=== PATIENT | male | born 1990 | race African-American/Black ===

== ENCOUNTER 2024-05-22 15:22 | Outpatient (REF) | payer OTHER, SELFPAY | END 2024-05-22 15:23 | disposition home or self-care (01) | LOC: HO.LAB 15:22 | PROVIDERS: PCP Physician Assistant; Visit Provider Urology | DX: N39.0 Urinary tract infection, site not specified (principal) | CPT/HCPCS: 81003; 87086 ==

== ENCOUNTER 2024-05-22 15:22 | Outpatient (AMB) | payer OTHER, SELFPAY ==
--- NOTE | 2024-05-22 15:32 | MHC.OFFVIS ---
Intake Visit Reasons: ER-Hematuria/Bladder Thickening/Poss Cystitis Intake Note: New patient is present for ER Follow up 04/16- Hematuria/HX Of Nephrolithiasis/ Bladder Thickening/Possible Cystitis Patient states he was told he had a UTI at ER and was put on medication Patient reports that his Urine has been very bloody since and medications has not helped at all Tipple Tender Required: No Accompanied by: Self / Same As Patient Allergies No Known Allergies Allergy (Verified 06/26/24 13:02) HPI Comments Details: Joseph is a pleasant male. He is a patient of . He is seen for the following urologic conditions - recurrent UTI Recurrent UTI with blood in the urine Reason presentation to [facility] emergency room UTI bladder wall thickening Had 14 days of Levaquin Recommend three-month follow-up [facility] Medical History (Updated 07/29/24 @ 16:49 by Dragan Agrawal MD) Microscopic hematuria Recurrent nephrolithiasis Review of Systems Const Denies chills and Denies fever(s) Card Reports no additional complaints and Denies syncope Resp Denies cough GI Denies abdominal pain and Denies heartburn Reports as per HPI and Denies change in libido Neuro Denies syncope Psych Denies change in libido Endo Denies change in libido Physical Exam Const General: cooperative, healthy appearing, comfortable and no acute distress Orientation/consciousness: patient oriented x3 HEENT Face and sinus: Yes normal facial exam Mouth: moist mucous membranes Neck Neck: Yes normal visual inspection, Yes full ROM and Yes trachea midline Chest Chest palpation & inspection: normal inspection of the chest Resp Effort & Inspection: normal respiratory effort, able to speak in complete sentences and no respiratory distress GI Inspection: Yes normal to inspection Back/Spine/Pelvis Cervical Spine: normal cervical lordosis Thoracic/Lumbar Spine: thoracic and lumbar spine normal to inspection Skin General skin exam: no rashes or lesions noted Neuro General: patient oriented x3, gait normal, tone normal and moves all extremities Extrem General: Yes normal to inspection and Yes capillary refill normal Results AMB Urinalysis, Automated UA Leukoctes 500 Annika/uL Last Edit by BEVERLY Rollins on 05/22/24 15:58 UA Nitrite Positive Last Edit by BEVERLY Rollins on 05/22/24 15:58 UA Urobilinogen 4 mg/dL Last Edit by BEVERLY Rollins on 05/22/24 15:58 UA Protein 300 mg/dL Last Edit by Tracie Mcgowan, RMA on 05/22/24 15:58 UA pH 7.5 Last Edit by Tracie Mcgowan, RMA on 05/22/24 15:58 UA Blood 200 [place]/uL Last Edit by Tracie Mcgowan, RMA on 05/22/24 15:58 UA Specific [place] 1.020 Last Edit by Tracie Mcgowan, RMA on 05/22/24 15:58 UA Ketone Positive Last Edit by Tracie Mcgowan, RMA on 05/22/24 15:58 UA Bilirubin 1 mg/dL Last Edit by Tracie Mcgowan, RMA on 05/22/24 15:58 UA Glucose 0 mg/dL Last Edit by Tracie Mcgowan, RMA on 05/22/24 15:58 Results Reviewed Results Reviewed: Laboratory Last Values Urine pH (Auto) 7.5 05/22/24 15:40 Specific [place] (Auto) 1.020 05/22/24 15:40 Urine Protein (Auto) 300 mg/dL 05/22/24 15:40 Glucose (UA)(Auto) 0 mg/dL 05/22/24 15:40 Urine Ketones (Auto) Positive 05/22/24 15:40 Urine Blood (Auto) 200 [place]/uL 05/22/24 15:40 Urine Nitrite (Auto) Positive 05/22/24 15:40 Urine Bilirubin (Auto) 1 mg/dL 05/22/24 15:40 Urine Urobilinogen (Auto) 4 mg/dL 05/22/24 15:40 Leukocyte Esterase (Auto) 500 Annika/uL 05/22/24 15:40 Assessment & Plan Assessment & Plan (1) Microscopic hematuria: Code(s): R31.29 - Other microscopic hematuria Category: Medical Plan one month f/u tele Orders: Orders Urine Culture 05/22/24 N39.0 - Urinary tract infection, site not specified AMB Urinalysis Automated 05/22/24 Z13.9 - Encounter for screening, unspecified Patient Instructions: Imaging studies, laboratory and physical exam results were discussed and reviewed in detail. No major barriers to patient understanding were identified. An opportunity to ask questions regarding the treatment plan was provided. All questions were answered. The patient expressed understanding and agreement with the above treatment plan. The patient is aware they should contact our office by phone for worsening of their current condition or the appearance of new urologic symptoms. Compliance is encouraged with any medications and followup testing that is ordered. It is a privilege to participate in the urologic care of your patient. If you have any questions or concerns regarding treatment for the above conditions, or other urologic issues, please do not hesitate to contact me. The office telephone contact is [phone]. This note is constructed using voice recognition software. While every effort has been made to ensure accuracy disc pad plate filler errors may have been included. Yours sincerely, Dr Dragan Agrawal MD, [facility] - Urology Providers of Expert, Compassionate Care for the Genitourinary System Coding Level of Care Code New Pt Level 3 (89045) Diagnoses Microscopic hematuria R31.29
== END 2024-05-22 16:12 | disposition home or self-care (01) ==
PROVIDERS: PCP Physician Assistant; Visit Provider Urology
DX: R31.29 Other microscopic hematuria (principal)
CPT/HCPCS: 99203

== ENCOUNTER 2024-06-26 12:58 | Outpatient (AMB) | payer OTHER, SELFPAY ==
--- NOTE | 2024-06-26 12:59 | MHC.OFFVIS ---
Intake Visit Reasons: 1M follow up Intake Note: Patient is present for Telephone Follow up Urology Med: None Antibiotic Allergy:None Blood Thinner:None Patient states that there is still some blood in his urine time to time Software Quality Assurance Analyst Required: No Accompanied by: Self / Same As Patient Allergies No Known Allergies Allergy (Verified 08/06/24 10:18) HPI Comments Details: Blanca is a pleasant male. He is a patient of . He is seen for the following urologic conditions - recurrent UTI Telemedicine Evaluation 15 min Consultation [employer] Improvement with Levaquin Six-month follow-up review renal imaging Recurrent UTI with blood in the urine Reason presentation to [facility] emergency room UTI bladder wall thickening Had 14 days of Levaquin [facility] Medical History (Updated 08/06/24 @ 10:49 by Dragan Agrawal MD) Microscopic hematuria Recurrent nephrolithiasis Review of Systems Const All systems reviewed & are unremarkable except as noted in HPI and below Reports no additional complaints Resp Reports no additional complaints GI Reports no additional complaints Reports as per HPI Musc Reports no additional complaints Physical Exam Telemedicine evaluation Appropriate responses Regular breathing rate and rhythm HEENT Head: Yes normal to inspection Ears: hearing grossly normal bilaterally Eyes General: appearance normal, both eyes and all related structures Neck Neck: Yes normal visual inspection Chest Chest palpation & inspection: normal inspection of the chest Resp Effort & Inspection: normal respiratory effort and able to speak in complete sentences Telehealth Telehealth Location of provider rendering services: practice address Location of patient: address on file Patient Identification confirmed using: Name, : Yes Telehealth method: voice only Patient verbally consented to treatment: Yes Patient verbally consented to billing insurance company: Yes Patient informed of any privacy concerns related to visit: Yes Assessment & Plan Assessment & Plan (1) Microscopic hematuria: Code(s): R31.29 - Other microscopic hematuria Category: Medical (2) Complicated urinary tract infection: Code(s): N39.0 - Urinary tract infection, site not specified Category: Medical Plan Six-month follow-up Patient Instructions: Imaging studies, laboratory and physical exam results were discussed and reviewed in detail. No major barriers to patient understanding were identified. An opportunity to ask questions regarding the treatment plan was provided. All questions were answered. The patient expressed understanding and agreement with the above treatment plan. The patient is aware they should contact our office by phone for worsening of their current condition or the appearance of new urologic symptoms. Compliance is encouraged with any medications and followup testing that is ordered. It is a privilege to participate in the urologic care of your patient. If you have any questions or concerns regarding treatment for the above conditions, or other urologic issues, please do not hesitate to contact me. The office telephone contact is [phone]. This note is constructed using voice recognition software. While every effort has been made to ensure accuracy systems specialist errors may have been included. Yours sincerely, Dr Dragan Agrawal MD, [facility] - Urology Providers of Expert, Compassionate Care for the Genitourinary System Coding Level of Care Code Tele Est Pt Level 3 (18267) Diagnoses Microscopic hematuria R31.29 Complicated urinary tract infection N39.0
== END 2024-06-26 13:33 | disposition home or self-care (01) ==
LOC: HO.HUSH 12:58
PROVIDERS: PCP Physician Assistant; Visit Provider Urology
DX: R31.29 Other microscopic hematuria (principal); N39.0 Urinary tract infection, site not specified
CPT/HCPCS: 99213

== ENCOUNTER → 2024-06-26 12:58 | Outpatient (BNVA) | payer OTHER, SELFPAY | PROVIDERS: PCP Physician Assistant; Visit Provider Urology ==

== ENCOUNTER 2024-08-06 10:05 | Outpatient (AMB) | payer OTHER, SELFPAY ==
--- NOTE | 2024-08-06 10:17 | A.OFFVIS_ITS ---
Intake Visit Reasons: 6M UTI/Hematuria Follow up Intake Note: Patient is present for 6M UTI/HEMATURIA F/U Urology Medication:NONE Antibiotic Allergy:NONE Blood Thinner:NONE Pump Servicer Required: No Allergies No Known Allergies Allergy (Verified 08/06/24 10:18) HPI Comments Details: Blanca is a pleasant male. He is a patient of . He is seen for the following urologic conditions - recurrent UTI - microscopic hematuria Persistent microscopic hematuria Recurrent UTI today Antibiotics provided Will need cystoscopy Urine culture has come back with group B strep. Antibiotics changed to Augmentin. Recurrent UTI with blood in the urine Reason presentation to [facility] emergency room UTI bladder wall thickening Initially given Bactrim - nitrite negative 04/20 CT scan performed negative Had 14 days of Levaquin [facility] Medical History (Updated 08/06/24 @ 10:49 by Dragan Agrawal MD) Microscopic hematuria Recurrent nephrolithiasis Results AMB Urinalysis, Automated UA Leukoctes 125 Annika/uL Last Edit by FLAVIO Parker on 08/06/24 10:33 UA Nitrite Positive Last Edit by FLAVIO Pakrer on 08/06/24 10:33 UA Urobilinogen 1 mg/dL Last Edit by FLAVIO Parker on 08/06/24 10:33 UA Protein 100 mg/dL Last Edit by FLAVIO Parker on 08/06/24 10:33 UA pH 6.0 Last Edit by FLAVIO Parker on 08/06/24 10:33 UA Blood 200 [place]/uL Last Edit by FLAVIO Parker on 08/06/24 10:33 UA Specific [place] 1.025 Last Edit by FLAVIO Parker on 08/06/24 10: 33 UA Ketone Negative Last Edit by FLAVIO Parker on 08/06/24 10:33 UA Bilirubin 0 mg/dL Last Edit by FLAVIO Parker on 08/06/24 10:33 UA Glucose 0 mg/dL Last Edit by FLAVIO Parker on 08/06/24 10:33 Results Reviewed Results Reviewed: Laboratory Last Values Urine pH (Auto) 6.0 08/06/24 10:32 Specific [place] (Auto) 1.025 08/06/24 10:32 Urine Protein (Auto) 100 mg/dL 08/06/24 10:32 Glucose (UA)(Auto) 0 mg/dL 08/06/24 10:32 Urine Ketones (Auto) Negative 08/06/24 10:32 Urine Blood (Auto) 200 [place]/uL 08/06/24 10:32 Urine Nitrite (Auto) Positive 08/06/24 10:32 Urine Bilirubin (Auto) 0 mg/dL 08/06/24 10:32 Urine Urobilinogen (Auto) 1 mg/dL 08/06/24 10:32 Leukocyte Esterase (Auto) 125 Annika/uL 08/06/24 10:32 Assessment & Plan Assessment & Plan (1) Complicated urinary tract infection: Code(s): N39.0 - Urinary tract infection, site not specified Category: Medical (2) Microscopic hematuria: Code(s): R31.29 - Other microscopic hematuria Category: Medical (3) Recurrent nephrolithiasis: Code(s): N20.0 - Calculus of kidney Category: Medical Plan Complete evaluation with imaging and cystoscopy Orders: Orders AMB Urinalysis Automated 08/06/24 Z13.9 - Encounter for screening, unspecified Urine Culture 08/06/24 N39.0 - Urinary tract infection, site not specified CT abdomen pelvis wo IV con 08/06/24 N39.0 - Urinary tract infection, site not specified Medications: New doxycycline hyclate 100 mg PO BID 14 days 28 tabs 0RF N39.0 - Urinary tract infection, site not specified, N45.1 - Epididymitis amoxicillin-pot clavulanate 500-125 mg (Augmentin) 1 tab PO Q8H 5 days 15 tabs 0RF N39.0 - Urinary tract infection, site not specified Patient Instructions: Imaging studies, laboratory and physical exam results were discussed and reviewed in detail. No major barriers to patient understanding were identified. An opportunity to ask questions regarding the treatment plan was provided. All questions were answered. The patient expressed understanding and agreement with the above treatment plan. The patient is aware they should contact our office by phone for worsening of their current condition or the appearance of new urologic symptoms. Compliance is encouraged with any medications and followup testing that is ordered. It is a privilege to participate in the urologic care of your patient. If you have any questions or concerns regarding treatment for the above conditions, or other urologic issues, please do not hesitate to contact me. The office telephone contact is [phone]. This note is constructed using voice recognition software. While every effort has been made to ensure accuracy preschool aide errors may have been included. Yours sincerely, Dr Dragan Agrawal MD, [facility] - Urology Providers of Expert, Compassionate Care for the Genitourinary System Coding Level of Care Code Est Pt Level 4 (43802) Diagnoses Complicated urinary tract infection N39.0 Microscopic hematuria R31.29 Recurrent nephrolithiasis N20.0
== END 2024-08-06 10:53 | disposition home or self-care (01) ==
PROVIDERS: PCP Physician Assistant; Visit Provider Urology
DX: N39.0 Urinary tract infection, site not specified (principal); R31.29 Other microscopic hematuria; N20.0 Calculus of kidney
CPT/HCPCS: 99214

== ENCOUNTER 2024-08-06 10:05 | Outpatient (REF) | payer OTHER, SELFPAY | END 2024-08-06 10:06 | disposition home or self-care (01) | LOC: HO.LAB 10:05 | PROVIDERS: PCP Physician Assistant; Visit Provider Urology | DX: N39.0 Urinary tract infection, site not specified (principal); B95.4 Other streptococcus as the cause of diseases classified elsewhere | CPT/HCPCS: 81003; 87086; 87147 ==

== ENCOUNTER 2024-09-18 17:05 | Outpatient (REF) | payer OTHER, SELFPAY ==
--- NOTE | ~2024-09-18 | CT_ITS ---
CLINICAL HISTORY: G89.3 - Neoplasm related pain (acute) (chronic) CT abdomen and pelvis without contrast Comparison: None Findings: No consolidation or effusion. 2 mm nonobstructive calculus within the upper pole of the right kidney. No ureteral calculus or hydronephrosis. Remaining abdominal organs are unremarkable. No calcified gallstones. No bowel obstruction, pneumoperitoneum, or pneumatosis. There is a 7 mm fat density nodular focus associated with the anterior wall of the urinary bladder. Remaining pelvic contents are unremarkable. Possible appendicoliths. No current evidence of appendicitis. No acute fracture. IMPRESSION: 1. Tiny nonobstructive calculus within the right kidney. 2. 7 mm focus of fat associated with the anterior bladder wall, likely a lipoma. This document has been electronically signed by: Leonora Booth MD on 09/18/2024 17:44:50
--- OUTSIDE RECORDS SUMMARY | 2024-09-18 18:29 | XMS_ITS | Clinical Summary ---
Author Organization [facility] Address [address] [place] [address] Care Team Providers Care Astronaut Mission Specialist Name Role Phone Miguel Angel Hassan Primary Care Provider [phone] Source Comments PLEASE NOTE, if this patient is a minor, it may be UNLAWFUL to discuss sensitive information that is contained in these records (such as FAMILY PLANNING, MENTAL HEALTH or SUBSTANCE ABUSE) with the minor patient's parent or other person without the patient's specific authorization.[facility] Allergies Active Allergy Reactions Criticality Noted Date Comments Levonorgestrel-Ethinyl Estrad 2019 Pollen Extracts 10/29/2019 Shellfish Derived 10/29/2019 Medications tamsulosin (FLOMAX) 0.4 mg 24 hr capsuleIndicati ons:History of kidney stones Take 1 Capsule by mouth once daily 30 Capsule 05/25/2021 Active Active Problems Problem Noted Date Diagnosed Date Idiopathic hematuria 06/15/2021 Overview (06/15/2021): Per [facility] notes May 2021: monitor kidney stones and blood in urine at this time, if symptoms persist past age 35 would need full workup. Urine Cytology sent by [facility] May 2021 Encounters Date Type Department Care Team Description 07/09/2024 10:40 AM EST Office Visit [facility] [address] [place] [phone] Umesh Coulter FNP Urinary tract infection with hematuria, site unspecified (Primary Dx) 07/09/2024 Travel from Last 3 Months Immunizations Name Administration Dates Next Due Flu, Preservative Free 06/20/2023,05/25/2022,07/2021 Hep A, Ped/adol, 2 Dose 09/01/2015,09/01/2015 Hep B,adult,adjuvanted (HEPLISAV) 06/20/2023 INFLUENZA, SEASONAL, INJECTA BLE, PRESERVATIVE FREE 09/01/2015,09/01/2015 MENINGOCOCCAL B, RECOMBINANT 09/01/2015,09/01/19 MMR (MMR II/Priorix) 06/25/2021 PFIZER COVID VACCINE, PURPLE CAP, 12+ 07/29/2021 ,06/12/2021 TDAP 09/01/2015,09/01/2015 Varicella, Live Vaccine 06/25/2021 Family History Relation Name Status Comments Maternal Grandfather heart disease Social History Tobacco Use Types Packs/Day Years Used Date Smoking Tobacco: Never Smokeless Tobacco: Never Alcohol Use Standard Drinks/Week Comments Yes 4 (1 standard drink = 0.6 oz pur e alcohol) occassionally Social Connections Answer Date Recorded Connectedness 0 06/20/2023 Financial Resource Strain Answer Date R ecorded Financial Resource Strain 0 2022 Stress Answer Date Recorded Stress 0 06/20/2023 Physical Activity Answer Date Recorded Physical Activity 0 10/29/2019 Food Insecurity Answer Date Recorded Food 0 06/20/2023 Transportation Needs Answer Date Record ed Transportation 0 06/20/2023 Housing Stability Answer Date Recorded Housing 0 06/20/2023 Safety and Environment Answer Date Shin rded Safety 0 06/20/2023 Utilities Answer Date Recorded Utilities 0 06/20/2023 Employment Answer Date Recorded Stress 0 11/13/2019 Sex and Gender Information Value Date Recorded Sex Assigned at Male 10/29/2019 8:13 AM PST Legal Sex Male 12:34 PM PST Gender Identity Male 10/29/2019 8:13 AM PST Sexual Orientation Straight 10/29/2019 8: 13 AM PST 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 Not on file Not o n file Not on file Last Filed Vital Signs Vital Sign Reading Time Taken Comments Blood Pressure 124/70 07/09/2024 10:58 AM EST Pulse 96 07/09/2024 10:58 AM EST Temperature 36.9 ??C (98.4 ??F) 05/08/2024 1:46 PM ED T Respiratory Rate 19 07/09/2024 10:58 AM EST Oxygen Saturation 98% 07/09/2024 10:58 AM EST Inhaled Oxygen Concentration - - Weight 64.9 kg (143 lb) 07/09/2024 10:58 AM EST Height 177.8 cm (5' 10 ) 07/09/2024 10:58 AM EST Body Mass Index 20.52 07/09/2024 10:58 AM EST Plan of Treatment Health Maintenance Due Date Last Done Comments Imm-Hepatitis B (2 of 2 - Cp G 2-dose series) 07/18/2023 06/20/2023 [id number] ( season) 2024 021, 06/12/2021 Imm-Influenza (#1) 2024 06/20/2023, 0 05/25/2022, 07/09/2021, Additional history exists Annual Preventive Care Visit 06/20/2024, 11/18/2021, 10/29/2019 Alcohol and Drug Screen 08/28/2024 06/20/20 23, 11/18/2021, 11/18/2021, Additional history exists Depression Annual Screen 08/28/2024 06/20/2023 Hypertension Screening (#1) 07/09/2025 Tobacco Screening 07/09/2025 07/09/2024, , 11/18/2021 Imm-DTaP/Tdap/Td (3 - Td or Tdap) 09/01/2025 016, 09/01/2015 HIV Screening Completed 05/25/2022 Hepatitis C Screening Completed 05/25/2022 Procedures Procedure Name Priority Date/Time Associated Diagnosis Comments LAB SCANNED DOCUMENT 08/07/2024 3:00 AM EST REFERRAL SCANNED DOCUMENT 08/06/2024 3:00 AM EST LAB SCANNED DOCUMENT 08/06/2024 3:00 AM EST URINE CULTURE W ID & SENS Routine 07/09/2024 2:29 PM EST Urinary tract infection with hematuria, site unspecified RFLX - REFLEXIVE URINE CULTURE Routine 07/09/2024 2:29 PM EST Urinary tract infection with hematuria, site unspecified URINALYSIS, COMPLETE W/REFLEX TO CULTURE Routine 07/09/2024 2:29 PM EST Urinary tract infection with hematuria, site unspecified URINALYSIS, MULTISTIX (POCT) Routine 07/09/2024 11:19 AM EST Urinary tract infection with hematuria, site unspecified REFERRAL SCANNED DOCUMENT 06/26/2024 3:00 AM EDT HIV 1/2 AG & AB W/RFLX (4TH GEN) Routine 05/25/2022 9:24 AM EDT Routine adult health maintenance HEPATITIS C AB W/RFLX HCV RNA, QT, RT PCR Routine 05/25/2022 9:24 AM EDT Routine adult health maintenance from Last 3 Months or Most Recently Relevant to Health Maintenance Results * LAB SCANNED DOCUMENT (08/07/2024 3:00 AM EST) Only the most recent of2 resultswithin the time period is included. 08/07/2024 3:00 AM EST Miguel Angellindsey Jeromevais PA SCAN LAB Final Result * REFERRAL SCANNED DOCUMENT (08/06/2024 3:00 AM EST) Only the most recent of2 resultswithin the time period is included. 08/06/2024 3:00 AM EST Miguel Angel Sonya PA SCAN REFERRAL Final Result * (ABNORMAL) URINE CULTURE W ID & SENS (07/09/2024 2:29 PM EST) CULTURE See Note(A) [facility] Comment: ??CULTURE, URINE, ROUTINE ?Micro Number: ?[id number] ??Test Status: ? Final ??Specimen Source: ?? Urine ??Specimen Quality: ??Adequate ??Result: ?10,000-49,000 CFU/mL of Group B Streptococcus isolated ? Beta-hemolytic streptococci are predictably ? susceptible to Penicillin and other beta-lactams. ? Susceptibility testing not routinely performed. ? Please contact the laboratory within 3 days if ? susceptibility testing is desired. 07/09/2024 2:29 PM EST 07/09/2024 2:32 PM EST Umesh Marylin [facility] - NO BLOOD DRAW Final Re sult [facility] [address] [place] [id number], [facility] [address] [place] [phone] * (ABNORMAL) URINALYSIS, COMPLETE W/REFLEX TO CULTURE (07/09/2024 2:29 PM EST) COLOR RED(A) YELLOW [facility] APPEARANCE TURBID(A) CLEAR [facility] SPECIFIC GRAVITY 1.024 1.001 - 1.035 [facility] URINE PH 5.5 5.0 - 8.0 [facility] GLUCOSE NEGATIVE NEGATIVE [facility] BILIRUBIN 1+(A) NEGATIVE [facility] Comment: Presumptive positive bilirubin. Consider confirmation by serum bilirubin if clinically indicated. KETONES NEGATIVE NEGATIVE [facility] OCCULT BLOOD 2+(A) NEGATIVE [facility] URINE PROTEIN 2+(A) NEGATIVE [facility] NITRITE POSITIVE(A) NEGATIVE [facility] LEUKOCYTE ESTERASE 2+(A) NEGATIVE [facility] URINE LEUKOCYTES 20-40(A) 0 - 5 /HPF [facility] RBC PACKED(A) < OR = 2 [facility] SQUAMOUS EPITHELIAL CELLS NONE SEEN < OR = 5 [facility] BACTERIA MANY(A) NONE SEEN [facility] AMORPHOUS SEDIMENT MODERATE(A) NONE OR FEW [facility] HYALINE CAST 6-10(A) NONE SEEN /LPF [facility] YEAST MODERATE(A) NONE SEEN [facility] SEE NOTE See Below [facility] Comment: This urine was analyzed for the presence of WBC, RBC, bacteria, casts, and other formed elements. Only those elements seen were reported. Urine Urine specimen / Unknown 07/09/2024 2:29 PM EST 07/09/2024 2:32 PM EST [facility] - NO BLOOD DRAW Edited [employer] Performing Organization Address [facility] Co de [place] [address], [facility] [address] [phone] * RFLX - REFLEXIVE URINE CULTURE (07/09/2024 2:29 PM EST) REFLEXIVE URINE CULTURE See Below [facility] Comment:CULTURE INDICATED - RESULTS TO FOLLOW 07/09/2024 2:29 PM EST 07/09/2024 2:32 PM EST [facility] - NO BLOOD DRAW Edited [employer] Performing Organization Address [facility] de Phone Number [facility] [address] [address], [facility] [address] [phone] * (ABNORMAL) URINALYSIS, MULTISTIX (POCT) (07/09/2024 11:19 AM EST) URINE GLUCOSE NEGATIVE NEGATIVE [facility] PO[facility] URINE BILIRUBIN MODERATE(A) NEGATIVE [facility] URINE KETONES TRACE(A) NEGATIVE [facility] URINE SPECIFIC GRAVITY 1.025 <=1.005 - >=1.030 [facility] URINE BLOOD LARGE(A) NEGATIVE [facility] URINE PH 6.0 5.0 - 8.5 [facility] URINE PROTEIN 300 (3+)(A) Negative [facility] URINE UROBILINOGEN 4.0(A) 0.2 - 1.0 E.U./dL [facility] URINE NITRITE POSITIVE(A) NEGATIVE [facility] URINE LEUKOCYTES LARGE(A) NEGATIVE [facility] URINE COLOR RED(A) STRAW, YELLOW [facility] ODOR URINE Normal Normal [facility] CLARITY OF URINE OTHER SEE COMMENT CLEAR [facility] Comment:red blood Urine Urine specimen / Unknown 07/09/2024 11:19 AM EST Umesh Coulter [facility] - NO BLOOD DRAW Final Re sult Performing Organization Address [facility]/ZIP Co de Phone Number [facility] PO[facility] * HEPATITIS C AB W/RFLX HCV RNA, QT, RT PCR (05/25/2022 9:24 AM EDT) HEPATITIS C ANTIBODY NON-REACT STEPHANIE NON-REACT STEPHANIE [facility] SIGNAL TO CUT-OFF 0.12 <1.00 [facility] Comment: HCV antibody was non-reactive. There is no laboratory evidence of HCV infection. In most cases, no further action is required. However, if recent HCV exposure is suspected, a test for HCV RNA (test code 89484) is suggested. For additional information please refer to http://education.[employer]/faq/GRG72v6 (This link is being provided for informational/ educational purposes only.) Blood Blood / Unknown 05/25/2022 9 :24 AM EDT 05/25/2022 9:25 AM EDT us Miguel Angel [facility] - BLOOD DRAW Final Result Performing Organization Address City/[facility]/ZIP Co de Phone Number [facility] [address] [address], [facility] [address] [address] * HIV 1/2 AG & AB W/RFLX (4TH GEN) (05/25/2022 9:24 AM EDT) HIV AG/AB, 4TH GEN NON-REAC TIVE NON-REAC TIVE [facility] Comment: HIV-1 antigen and HIV-1/HIV-2 antibodies were not detected. There is no laboratory evidence of HIV infection. PLEASE NOTE: This information has been disclosed to you from records whose confidentiality may be protected by state law. ??If your state requires such protection, then the state law prohibits you from making any further disclosure of the information without the specific written consent of the person to whom it pertains, or as otherwise permitted by law. A general authorization for the release of medical or other information is NOT sufficient for this purpose. ?? For additional information please refer to http://education.[employer]/faq/SUT261 (This link is being provided for informational/ educational purposes only.) The performance of this assay has not been clinically validated in patients less than 2 years old. Blood Blood / Unknown 05/25/2022 9 :24 AM EDT 05/25/2022 9:25 AM EDT Miguel Angel [facility] - BLOOD DRAW Final Result [facility] [address] [address], [facility] [address] [address] from Last 3 Months or Most Recently Relevant to Health Maintenance Insurance [employer] ([employer]) Member Subscriber Plan / Payer (Ef fective 2024-Present) Name:Joseph English Relation to Subscriber:Self Name:Joseph English Payer ID:[id number] Group ID:Not on file Type:Indemnity Address: [address] [place] [id number] Care Teams Astronaut Mission Specialist Relationship Specialty Start Date End Date Miguel Angel Hassan PA [address] [place] [id number] PCP - General Internal Medicine 10/07/19
--- OUTSIDE RECORDS SUMMARY | 2024-09-18 18:29 | XMS_ITS | Clinical Summary ---
Author Organization [facility] ity Address [address] [place] [address] Care Team Providers Care Supervisor Residential Name Role Phone Miguel Angel Hassan Primary Care Provider [phone] Social History Tobacco Use Types Packs/Day Years Used Date Smoking Tobacco: Never Assessed Sex and Gender Information Value Date Recorded Sex Assigned at Not on file Gender Identity Not on file Sexual Orientation Not on file Plan of Treatment Health Maintenance Due Date Last Done Comments DTaP,Tdap,and Td Vaccines (1 - Tdap) 02/22/2011 Hepatitis B Vaccines (1 of 3 - 19+ 3-dose series) 02/22/2011 Depression Screening 07/31/2022 HIV Screening 07/31/2022 Hepatitis C Screening 07/31/2022 Social Influencers of Health Screening 07/31/2022 COVID-19 Vaccine (2023-2 5 season) 2024 Influenza Vaccine (#1) 2024 HIB Vaccines Aged Out No longer eligi ble based on patient's age to complete this topic HPV Vaccines Aged Out No longer eligi ble based on patient's age to complete this topic Hepatitis A Vaccines Aged Out No long er eligible based on patient's age to complete this topic IPV Vaccines Aged Out No longer eligi ble based on patient's age to complete this topic MMR Vaccines Aged Out No longer eligi ble based on patient's age to complete this topic Meningococcal ACWY Vaccine Aged Out N o longer eligible based on patient's age to complete this topic Pneumococcal Vaccine: Pediat rics (0 to 5 Years) and At-Risk Patients (6 to 64 Years) Aged Out No longer eligible b ased on patient's age to complete this topic RSV Immunization Patients Un shaji 20 months Aged Out No longer eligible b ased on patient's age to complete this topic Varicella Vaccines Aged Out No longer eligible based on patient's age to complete this topic Care Teams Supervisor Residential Relationship Specialty Start Date End Date Miguel Angel Hassan PA [address] [place] [phone] PCP - General Internal Medicine 05/26/22
== END 2024-09-18 17:06 | disposition home or self-care (01) ==
LOC: HO.CT 17:05
PROVIDERS: PCP Physician Assistant; Visit Provider Urology
DX: N39.0 Urinary tract infection, site not specified (principal); G89.3 Neoplasm related pain (acute) (chronic); C79.51 Secondary malignant neoplasm of bone
CPT/HCPCS: 74176

== ENCOUNTER → 2024-09-18 17:07 | Outpatient (BNV) | payer OTHER, SELFPAY | PROVIDERS: PCP Physician Assistant; Visit Provider Radiology Diagnostic Radiology | DX: N20.0 Calculus of kidney (principal); E65 Localized adiposity | CPT/HCPCS: 74176 ==

== ENCOUNTER 2024-10-30 10:58 | Outpatient (AMB) | payer OTHER, SELFPAY ==
--- NOTE | 2024-10-30 11:12 | A.OFFVIS_ITS ---
Intake Visit Reasons: CT/MED REVIEW(DOXYCYCLINE,AMOXICILLIN)SET Intake Note: Patient is present for CT/MED REVIEW (DOXYCYCLINE,AMOXIXILLIN) Urology Medication:NONE Antibiotic Allergy:NONE Blood Thinner:NONE Athletic Coach Required: No Allergies No Known Allergies Allergy (Verified 10/30/24 11:14) HPI Comments Details: Blanca is a pleasant male. He is a patient of . He is seen for the following urologic conditions - recurrent UTI - microscopic hematuria CT scan negative KARLA prostatitis 1 month Levaquin plus anti-inflammatory Recurrent UTI with blood in the urine Reason presentation to [facility] emergency room UTI bladder wall thickening Initially given Bactrim - nitrite negative Urine culture has come back with group B strep. Antibiotics changed to Augmentin. 04/20 CT scan performed negative Had 14 days of Levaquin [facility] Medical History (Updated 10/30/24 @ 11:48 by Dragan Agrawal MD) Microscopic hematuria Recurrent nephrolithiasis Review of Systems Const Denies chills and Denies fever(s) Card Reports no additional complaints and Denies syncope Resp Denies cough GI Denies abdominal pain and Denies heartburn Reports as per HPI and Denies change in libido Neuro Denies syncope Psych Denies change in libido Endo Denies change in libido Physical Exam Const General: cooperative, healthy appearing, comfortable and no acute distress Orientation/consciousness: patient oriented x3 HEENT Face and sinus: Yes normal facial exam Mouth: moist mucous membranes Neck Neck: Yes normal visual inspection, Yes full ROM and Yes trachea midline Chest Chest palpation & inspection: normal inspection of the chest Resp Effort & Inspection: normal respiratory effort, able to speak in complete sentences and no respiratory distress GI Inspection: Yes normal to inspection Rectal Exam - Male: Yes normal sphincter tone and Yes prostate normal Male General Exam: Yes normal external exam Penis: normal penis and circumcised Meatus: meatus normal Scrotum: scrotum normal Testes: Testes normal Back/Spine/Pelvis Cervical Spine: normal cervical lordosis Thoracic/Lumbar Spine: thoracic and lumbar spine normal to inspection Skin General skin exam: no rashes or lesions noted Neuro General: patient oriented x3, gait normal, tone normal and moves all extremities Extrem General: Yes normal to inspection and Yes capillary refill normal Assessment & Plan Assessment & Plan (1) Prostatitis: Code(s): N41.9 - Inflammatory disease of prostate, unspecified Category: Medical Plan Manage prostatitis One month Levaquin One-month anti-inflammatory Orders: Orders AMB Urinalysis Automated 10/29/24 Z13.9 - Encounter for screening, unspecified Medications: New levofloxacin 500 mg PO DAILY 28 tabs 0RF 28 days N41.9 - Inflammatory disease of prostate, unspecified meloxicam 15 mg PO DAILY 30 tabs 0RF 30 days N41.9 - Inflammatory disease of prostate, unspecified, R10.31 - Right lower quadrant pain, R10.32 - Left lower quadrant pain Patient Instructions: This note is constructed using voice recognition software. While every effort has been made to ensure accuracy crusher dry ground mica errors may have been included. Imaging studies, laboratory and physical exam results were discussed and reviewed in detail. No major barriers to patient understanding were identified. An opportunity to ask questions regarding the treatment plan was provided. All questions were answered. The patient expressed understanding and agreement with the above treatment plan. The patient is aware they should contact our office by phone for worsening of their current condition or the appearance of new urologic symptoms. Compliance is encouraged with any medications and followup testing that is ordered. It is a privilege to participate in the urologic care of your patient. If you have any questions or concerns regarding treatment for the above conditions, or other urologic issues, please do not hesitate to contact me. The office telephone contact is [phone]. Sincerely, Dr Dragan Agrawal MD, [facility] - Urology Compassionate Specialist Care for the Genitourinary System Coding Level of Care Code Est Pt Level 4 (14595) Diagnoses Prostatitis N41.9
--- OUTSIDE RECORDS SUMMARY | 2024-10-30 13:17 | XMS_ITS | Clinical Summary ---
Author Organization [facility] ity Address [address] [place] [address] Care Team Providers Care Nurse Specialist Name Role Phone Miguel Angel Hassan Primary Care Provider Social History Tobacco Use Types Packs/Day Years Used Date Smoking Tobacco: Never Assessed Sex and Gender Information Value Date Recorded Sex Assigned at Not on file Legal Sex Male 2:25 AM EST Gender Identity Not on file Sexual Orientation Not on file Plan of Treatment Health Maintenance Due Date Last Done Comments DTaP,Tdap,and Td Vaccines (1 - Tdap) 02/22/2011 Hepatitis B Vaccines (1 of 3 - 19+ 3-dose series) 02/22/2011 Depression Screening 07/31/2022 HIV Screening 07/31/2022 Hepatitis C Screening 07/31/2022 Social Influencers of Health Screening 07/31/2022 COVID-19 Vaccine ( - 2023-2 5 season) 2024 Influenza Vaccine (#1) 2024 [...] patient's age to complete this topic Meningococcal B Vacine Aged Out No lo nger eligible based on patient's age to complete [...] age to complete this topic Care Teams Nurse Specialist Relationship Specialty Start Date End Date Miguel Angel Hassan PA [address] [place] [phone] PCP - General Internal Medicine 05/26/22
--- OUTSIDE RECORDS SUMMARY | 2024-10-30 13:17 | XMS_ITS | Clinical Summary ---
Author Organization [facility] Address [address] [place] [address] Care Team Providers Care Lead Solutions Architect Name Role Phone Miguel Angel Hassan Primary Care Provider [phone] Source Comments PLEASE NOTE, if this patient [...] Date Idiopathic hematuria 06/15/2021 Overview (06/15/2021): Per [facility] Urology notes May 2021: monitor kidney stones and blood in urine at this time, if symptoms persist past age 35 would need full workup. 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 Not o [...] 07/09/2024 10:58 AM EST Plan of Treatment Upcoming Encounters Date Type Department Care Team (Late st Contact Info) Description 11/13/2024 1:40 PM EDT [facility] [address] [place] [address] Miguel Angel Hassan PA [address] [place] [address] Health Maintenance Due Date Last Done Comments Imm-Hepatitis B (2 of 2 - Cp G 2-dose series) 07/18/2023 06/20/2023 [id number] ( season) 2024 021, 06/12/2021 Imm-Influenza (#1) [...] Procedure Name Priority Date/Time Associated Diagnosis Comments IMAGING SCANNED DOCUMENT 09/18/2024 3:00 AM EST IMAGING SCANNED DOCUMENT 09/18/2024 3:00 AM EST LAB SCANNED DOCUMENT 08/07/2024 3:00 AM EST REFERRAL SCANNED DOCUMENT 08/06/2024 3:00 AM EST LAB SCANNED DOCUMENT 08/06/2024 3:00 AM EST HIV 1/2 AG & AB W/RFLX (4TH GEN) Routine 05/25/2022 9:24 AM EDT Routine adult health maintenance HEPATITIS C AB W/RFLX HCV RNA, QT, RT PCR Routine 05/25/2022 9:24 AM EDT Routine adult health maintenance from Last 3 Months or Most Recently Relevant to Health Maintenance Results * IMAGING SCANNED DOCUMENT (09/18/2024 3:00 AM EST) Only the most recent of2 resultswithin the time period is included. 09/18/2024 3:00 AM EST Miguel Angel Sonya PA SCAN IMAGING Final Result * LAB SCANNED DOCUMENT (08/07/2024 3:00 AM EST) Only the most recent of2 resultswithin the time period is included. 08/07/2024 3:00 AM EST Miguel Angel Sonya PA SCAN LAB Final Result * REFERRAL SCANNED DOCUMENT (08/06/2024 3:00 AM EST) 08/06/2024 3:00 AM EST Miguel Angel Sonya PA SCAN REFERRAL Final Result * HEPATITIS C AB W/RFLX HCV RNA, QT, RT PCR (05/25/2022 9:24 AM EDT) HEPATITIS C ANTIBODY NON-REACT STEPHANIE NON-REACT STEPHANIE [employer] SIGNAL TO CUT-OFF 0.12 <1.00 [employer] Comment: HCV antibody was non-reactive. There is no laboratory evidence of HCV infection. In most cases, no further action is required. However, if recent HCV exposure is suspected, a test for HCV RNA (test code 55356) is suggested. For additional information please refer to http://education.Z[employer]/faq/WIB61j4 (This link is being provided for informational/ educational purposes only.) Blood Blood / Unknown 05/25/2022 9 :24 AM EDT 05/25/2022 9:25 AM EDT Miguel Angel [facility] - BLOOD DRAW Final Result [employer] [address] [address], Link To Media [facility] [address],[place] [address] * HIV 1/2 AG & AB W/RFLX (4TH GEN) (05/25/2022 9:24 AM EDT) [facility] HIV AG/AB, 4TH GEN NON-REAC TIVE NON-REAC TIVE Link To Media [facility] Comment: HIV-1 antigen and HIV-1/HIV-2 antibodies were [...] ?? For additional information please refer to http://education.Zebra Mobile/faq/DJF050 (This link is being provided for informational/ educational purposes only.) The performance of this assay has not been clinically validated in patients less than 2 years old. Blood Blood / Unknown 05/25/2022 9 :24 AM EDT 05/25/2022 9:25 AM EDT Miguel Angel [facility] - BLOOD DRAW Final Result [employer] [address] [address], Link To Media [facility] [address],[place] [address] from Last 3 Months or Most Recently Relevant to Health Maintenance Insurance [facility] ([facility]) Member Subscriber Plan / Payer (Ef fective 2024-Present) Name:Joseph English Relation to Subscriber:Self Name:Jospeh English Payer ID:[id number] Group ID:Not on file Type:Indemnity Address: [address] [place] [id number] Care Teams Lead Solutions Architect Relationship Specialty Start Date End Date Miguel Angel Hassan PA [address] [place] [id number] PCP - General Internal Medicine 10/07/19
== END 2024-10-30 11:53 | disposition home or self-care (01) ==
PROVIDERS: PCP Physician Assistant; Visit Provider Urology
DX: N41.9 Inflammatory disease of prostate, unspecified (principal)
CPT/HCPCS: 99214

== ENCOUNTER 2025-01-01 13:57 | Outpatient (REF) | payer OTHER, SELFPAY ==
[2025-01-01 16:36] LABS: Urine Cytology See Pathology rpt
== END 2025-01-01 13:58 | disposition home or self-care (01) ==
LOC: HO.LAB 13:57
PROVIDERS: PCP Physician Assistant; Visit Provider Urology
DX: R31.29 Other microscopic hematuria (principal)
CPT/HCPCS: 81003; 88112

== ENCOUNTER 2025-01-01 13:57 | Outpatient (AMB) | payer OTHER, SELFPAY ==
--- NOTE | 2025-01-01 14:07 | MHC.OFFVIS ---
Intake Visit Reasons: 2m/UA Intake Note: Patient is present for 2M/UA Urology Medication:NONE Antibiotic Allergy:NONE Blood Thinner:NONE Infection Prevention Coordinator Required: No Allergies No Known Allergies Allergy (Verified 01/01/25 14:08) HPI Comments Details: Blanca is a pleasant male. He is a patient of . He is seen for the following urologic conditions - recurrent UTI - microscopic hematuria - prostatitis One month follow-up prostatitis Recurrent UTI with blood in the urine Reason presentation to [facility] emergency room UTI bladder wall thickening Initially given Bactrim - nitrite negative Urine culture has come back with group B strep. Antibiotics changed to Augmentin. 04/20 CT scan performed negative Had 14 days of Levaquin [facility] Medical History (Updated 10/30/24 @ 11:48 by Dragan Agrawal MD) Microscopic hematuria Recurrent nephrolithiasis Assessment & Plan Assessment & Plan Orders: Orders AMB Urinalysis Automated Today Z13.9 - Encounter for screening, unspecified Urine Cytology Today R31.29 - Other microscopic hematuria Coding
--- OUTSIDE RECORDS SUMMARY | 2025-01-01 15:15 | XMS_ITS | Data Portability ---
Author Organization [place] [facility], Allergy Address [address] [address] Care Team Providers Care Manager Equipment Name Role Phone FERNANDA GARCIA Referring Provider Assessment No assessment recorded. Plan of Treatment Reminders Order Date Submit Date Provider Last Modified By Organization Details Last Modified Time Details Appointments Test Results 15 2024 08:30A M ERAN POWER MD Not available Not available Not available Lab ige, total, serum 2024 025 [facility] (Centralized Electronic Ordering - All Locations), Patient Can Go To The Location Of Their Choice, [address] 11/15/2024 10:17:08 CBC w/ auto diff 2024 025 [facility] (Centralized Electronic Ordering - All Locations), Patient Can Go To The Location Of Their Choice, [address] 11/15/2024 10:17:08 Referral None recorded. Procedures allergy testing, skin prick (PROC) 2024 025 [email or web address] Not available 12/04/2024 11:37:34 pulmonary function test procedure (PROC) 2024 025 [email or web address] Not available 12/04/2024 11:37:34 pulse oximetry (PROC) 2024 025 [email or web address] Not available 12/04/2024 11:37:34 intraderm al allergy skin testing (PROC) 2024 025 [email or web address] Not available 12/04/2024 11:37:34 Surgeries None recorded. Imaging None recorded. Medication Orders azelastin e 137 mcg (0.1 %) nasal spray 2024 025 [facility][id number], [address] [place], [address], 11/13/2024 14:48:14 fluticaso ne propionat e 50 mcg/actua tion nasal spray,clinton pension 2024 025 [id number], [address] [place], [address], 11/13/2024 14:48:15 Patient TargetsNo targets recorded. Patient Instructions Encounter Date Encounter Id Patient Instructions Last Modified By Organization Details Last Modified Time 11/13/2024 [id number] Patient with history suggestive of allergic rhinitis, oral allergy syndrome and physical exam findings of septal deviation and boggy turbinates. There was some polypoid degeneration of the middle turbinates. Suggest consistent use of nasal steroid and intranasal antihistamine. Arrange for allergy skin testing. [email or web address] Not available 11/13/2024 14:44:07 12/11/2024 [id number] spirometry testing* [email or web address] Not available 12/12/2024 12:52:05 Reason for Referral None Reported. Results Created Date Observation Date Name Description Value Unit Range Abnormal Flag Note LastModifiedBy Organization Detail LastModifiedTime 11/14/1911/14/2024 CBC WITH DIFFE RENTI AL/PL ATELE T WBC 3.4 x10e3 /uL 3.4-10 .8 normal Not Available [facility] ([facility]) [address] [place], [address], 11/15/2024 10:17:08 11/14/19 25 11/14/2024 CBC WITH DIFFE RENTI AL/PL ATELE T RBC 3.80 x10e6 /uL 4.14-5 .80 below low normal Not Available [facility] ([facility]) [address] [place], [address], 11/15/2024 10:17:08 11/14/19 25 11/14/2024 CBC WITH DIFFE RENTI AL/PL ATELE T hemoglobin 6.9 g/dL 13.0-1 7.7 alert low Not Available [facility] ([facility]) [address] [place], [address], 11/15/2024 10:17:08 11/14/19 25 11/14/2024 CBC WITH DIFFE RENTI AL/PL ATELE T hematocrit 25.6 % 37.5-5 1.0 below low normal Not Available [facility] ([facility]) [address] [place], [address], 11/15/2024 10:17:08 11/14/19 25 11/14/2024 CBC WITH DIFFE RENTI AL/PL ATELE T MCV 67 fL 79-97 below low normal Not Available [facility] ([facility]) [address] [place], [address], 11/15/2024 10:17:08 11/14/19 25 11/14/2024 CBC WITH DIFFE RENTI AL/PL ATELE T MCH 18.2 pg 26.6-3 3.0 below low normal Not Available [facility] ([facility]) [address] [place], [address], 11/15/2024 10:17:08 11/14/19 25 11/14/2024 CBC WITH DIFFE RENTI AL/PL ATELE T MCHC 27.0 g/dL 31.5-3 5.7 below low normal Not Available [facility] ([facility]) [address] [place], [address], 11/15/2024 10:17:08 11/14/19 25 11/14/2024 CBC WITH DIFFE RENTI AL/PL ATELE T RDW 16.4 % 11.6-1 5.4 above high normal Not Available [facility] ([facility]) [address] [place], [address], 11/15/2024 10:17:08 11/14/19 25 11/14/2024 CBC WITH DIFFE RENTI AL/PL ATELE T platelets 273 x10e3 /uL 150-45 0 normal Not Available [facility] ([facility]) [address] [facility], [place], [address], 11/15/2024 10:17:08 11/14/19 25 11/14/2024 CBC WITH DIFFE RENTI AL/PL ATELE T neutrophils 31 % not estab. normal Not Available [facility] ([facility]) [address] [facility], [place], [address], 11/15/2024 10:17:08 11/14/19 25 11/14/2024 CBC WITH DIFFE RENTI AL/PL ATELE T lymphs 50 % not estab. normal Not Available [facility] ([facility]) [address] [facility], [place], [address], 11/15/2024 10:17:08 11/14/19 25 11/14/2024 CBC WITH DIFFE RENTI AL/PL ATELE T monocytes 10 % not estab. normal Not Available [facility] ([facility]) [address] [facility], [place], [address], 11/15/2024 10:17:08 11/14/19 25 11/14/2024 CBC WITH DIFFE RENTI AL/PL ATELE T eos 8 % not estab. normal Not Available [facility] ([facility]) [address] [facility], [place], [address], 11/15/2024 10:17:08 11/14/19 25 11/14/2024 CBC WITH DIFFE RENTI AL/PL ATELE T basos 1 % not estab. normal Not Available [facility] ([facility]) [address] [facility], [place], [address], 11/15/2024 10:17:08 11/14/19 25 11/14/2024 CBC WITH DIFFE RENTI AL/PL ATELE T immature cells PUBLIC AFFAIRS OFFICER Not Available [facility] ([facility]) [address] [place], [address], 11/15/2024 10:17:08 11/14/19 25 11/14/2024 CBC WITH DIFFE RENTI AL/PL ATELE T neutrophils (absolute) 1.1 x10e3 /uL 1.4-7. 0 below low normal Not Available [facility] ([facility]) [address] [place], [address], 11/15/2024 10:17:08 11/14/19 25 11/14/2024 CBC WITH DIFFE RENTI AL/PL ATELE T lymphs (absolute) 1.6 x10e3 /uL 0.7-3. 1 normal Not Available [facility] ([facility]) [address] [facility], [place], [address], 11/15/2024 10:17:08 11/14/19 25 11/14/2024 CBC WITH DIFFE RENTI AL/PL ATELE T monocytes(ab solute) 0.4 x10e3 /uL 0.1-0. 9 normal Not Available [facility] ([facility]) [address] [place], [address], 11/15/2024 10:17:08 11/14/19 25 11/14/2024 CBC WITH DIFFE RENTI AL/PL ATELE T eos (absolute) 0.3 x10e3 /uL 0.0-0. 4 normal Not Available [facility] ([facility]) [address] [place], [address], 11/15/2024 10:17:08 11/14/19 25 11/14/2024 CBC WITH DIFFE RENTI AL/PL ATELE T baso (absolute) 0.0 x10e3 /uL 0.0-0. 2 normal Not Available [facility] ([facility]) [address] [place], [address], 11/15/2024 10:17:08 11/14/19 25 11/14/2024 CBC WITH DIFFE RENTI AL/PL ATELE T immature granulocytes 0 % not estab. Not Available [facility] ([facility]) [address] [facility], [place], [address], 11/15/2024 10:17:08 11/14/19 25 11/14/2024 CBC WITH DIFFE RENTI AL/PL ATELE T immature grans (abs) 0.0 x10e3 /uL 0.0-0. 1 Not Available [facility] ([facility]) [address] [facility], [place], [address], 11/15/2024 10:17:08 11/14/19 25 11/14/2024 CBC WITH DIFFE RENTI AL/PL ATELE T NRBC PUBLIC AFFAIRS OFFICER Not Available [facility] ([facility]) [address] [facility], [place], [address], 11/15/2024 10:17:08 11/14/19 25 11/14/2024 CBC WITH DIFFE RENTI AL/PL ATELE T hematology comments: PUBLIC AFFAIRS OFFICER Not Available [facility] ([facility]) [address] [facility], [place], [address], 11/15/2024 10:17:08 11/14/19 25 11/15/2024 IMMUN OGLOB ULIN E, TOTAL immunoglobul in E, total 798 IU/mL 6-495 above high normal Not Available [facility] ([facility]) [address] [facility], [place], [address], 11/15/2024 10:17:08 12/12/19 25 azar metry testi ng* No observ ation record ed. [email or web address] Not Available 2024 13:57:25 Result Notes None recorded. Problems Name Problem SNOMED Code Status Onset Date Resolution Date Notes Provider Name and Address Organization Details Recorded Time Allergic rhinitis 83730377 Active 2024 AMBREEN WILKES RN [address] [place] [address], [facility], [place], [address] , [place] - [facility] 13:46:06 Deviated nasal septum 929799957 Active 2024 ERAN POWER MD 100 [facility],[address] [facility][note 3], [facility] [place], [address], [place] - [facility] 14:45:37 Hypertrophy of nasal turbinates 24001213 Active 2024 ERAN POWER MD 100 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,[address] [facility][note 3], [facility] [place], [address], [place] - [facility] 14:46:02 Seasonal allergic rhinitis 768075703 Active 2024 ERAN POWER MD 100 [facility],[address] [facility][note 3], [facility] [place], [address], [place] - [facility] 14:48:07 Problem Notes None recorded. Procedures Surgical History Date Name Laterality Status Provider Name and Address Organization Details Recorded Time 12/24/19 Allergy Testing INTRADREMAL(IDT) Only completed AMBREEN WILKES RN 100 [facility],[address], [address], [facility] - [facility] 12/23/2024 16:29:03 12/12/19 Allergy Testing Modified- Quantitative Testing (MQT) Only completed AMBREEN WILKES RN 100 [facility],[address], [address], [facility] - [facility] 12/11/2024 15:08:18 11/14/19 25 JMSNasal/Sinus Endoscopy completed ERAN WRIGHT MD [address] [facility] [address] [place] [address], [address], [place] - [facility] 11/13/2024 14:45:11 Imaging Results Imaging Date Name Status LastModified by [facility] Details LastModified Time 12/11/2024 spirometry testing* completed [email or web address] Information not available 12/12/2024 13:57:25 Procedure Notes None recorded. Medical Equipment None Reported. Allergies No known drug allergies Medications Name Sig Start Date Stop Date Status Note LastModified by Organization Details LastModified Time meloxicam 15 mg tablet TAKE 1 TAB ORALLY DAILY FOR 30 DAYS 12/11 completed Not Available Not Available Not Available ciprofloxac in 500 mg tablet TAKE 1 TABLET BY MOUTH TWICE A DAY FOR 3 DAYS 11/13 completed Not Available Not Available Not Available sulfamethox azole 800 mg-trimetho prim 160 mg tablet TAKE 1 TABLET BY MOUTH TWICE A DAY FOR 7 DAYS 11/13 completed Not Available Not Available Not Available azelastine 137 mcg (0.1 %) nasal spray SPRAY 2 SPRAYS BY INTRANASA L ROUTE TWICE A DAY active Not Available Not Available No t Available levofloxaci n 500 mg tablet TAKE 1 TAB ORALLY DAILY FOR 28 DAYS 12/11 completed Not Available Not Available Not Available fluticasone propionate 50 mcg/actuati on nasal spray,suspe nsion SPRAY 1 SPRAY BY INTRANASA L ROUTE EVERY DAY active Not Available Not Available No t Available doxycycline hyclate 100 mg tablet TAKE 1 TABLET BY MOUTH 2 TIMES A DAY FOR 14 DAYS 11/13 completed Not Available Not Available Not Available amoxicillin 500 mg-potassiu m clavulanate 125 mg tablet TAKE 1 TAB ORALLY EVERY 8 HOURS FOR 5 DAYS 11/13 completed Not Available Not Available Not Available ferrous sulfate 324 mg (65 mg iron) tablet,alexys yed release TAKE 1 TABLET BY MOUTH EVERY DAY WITH BREAKFAST active Not Available Not Available No t Available Vitals Date Recorded Body height Body mass index (BMI) Body weight Provider Name and Address Organization Details Last Updated DateTime 11/13/2024 177.8 cm 22.4 kg/m2 07446.41 g Berta De La Cruz [place] - [facility] 11/13/2024 14:24:50 Date Recorded Body height Body mass index (BMI) Body weight Oxygen saturation Oxygen saturation in Arterial blood by Pulse oximetry Provider Name and Address Organization Details Last Updated DateTime 12/11/2024 177.8 cm 23 kg/m2 93345.7 8 g 100 % 100 % AMBREEN WILKES RN [address], [address], [facility] 14:33:01 Date Recorded Body height Body mass index (BMI) Body weight Provider Name and Address Organization Details Last Updated DateTime 12/19/2024 177.8 cm 23 kg/m2 18135.78 g AMBREEN WILKES RN [address], [address], [facility] 12/19/2024 10:48:56 Date Recorded Body height Oxygen saturation Oxygen saturation in Arterial blood by Pulse oximetry Heart rate Body mass index (BMI) Body weight Systolic blood pressure Diastolic blood pressure Provider Name and Address Organization Details Last Updated DateTime 177.8 cm 99 % 99 % 60 /min 23 kg/m2 45792.7 8 g 121 mm[Hg] 66 mm[Hg] AMBREEN WILKES RN [address], [address], [facility] 16:15:56 Social History None recorded. Functional Status None recorded. Mental Status None recorded. Family History Nothing Reported. Medical History Condition Response Allergies/Hayfever Y Migraines Y Past Encounters Encounter ID Performer Location Encounter Start Date Encounter Closed Date Diagnosis/Indication Diagnosis SNOMED-CT Code Diagnosis ICD10 Code Diagnosis Note [id number] ERAN MOORE MD [facility] [address] [address] 11/13/2024 14:19:33 11/13/2024 14:50:25 Allergic rhinitis 42317825 J30.9 Deviated nasal septum 12 6598077 J34.2 Hypertroph y of nasal turbinates 83888864 J34.3 Polyp of nasal cavity 73 4134158 J33.0 Seasonal a llergic rhinitis 449605535 J30.2 [id number] AMBREEN WILKES RN Allergy 100 [facility] [address] [address] 12/11/2024 14:12:29 12/11/2024 15:09:47 Allergic rhinitis 42969819 J30.9 Seasonal a llergic rhinitis 333091656 J30.2 97304 AMBREEN WILKES RN Allergy 100 [facility], ite [address] [place] [address] 12/19/2024 10:41:07 12/19/2024 10:59:10 Allergic rhinitis 60959490 J30.9 85459 AMBREEN WILKES RN Allergy 100 [facility] [address] [place] [address] 12/23/2024 16:00:35 12/23/2024 16:30:22 Allergic rhinitis 36866236 J30.9 Health Concerns Section Related Observation LastModified by Organization Detai ls LastModified Time None Recorded Concern Status LastModified by Organization Details LastModified Time None Recorded Advance Directives Directive None Recorded Payers Insurance Date Sequence Insurance Name Policy Number Policy Marquez Covered Member ID Marquez Member ID Guarantor Name 12/23/[address] [place] [address] [id number] Joseph English [id number] Joseph English Notes Date Note Type Note Provider Name and Address Organization Details Recorded Time 11/13/2024 text/html Patient seen for an opinion regarding chronic nasal congestion both sides refractory to oral antihistamines he has tried loratadine and cetirizine. He reports having injection immunotherapy from around age 12-15. No recent trial of nasal steroids. He has a history of nasal trauma playing basketball. He also reports oral allergy symptoms with apples, bananas, and watermelonHe notes nocturnal nasal congestion and will frequently use ejhc-[id number] decongestant preparations. No history of asthma or shortness of breath. He plays basketball without difficultySnot=33 Nose=75 ERAN WRIGHT MD 100 [facility] [address], [place], [address], [facility] - [facility] 11/13/2024 14:48:34
--- OUTSIDE RECORDS SUMMARY | 2025-01-01 15:15 | XMS_ITS | Clinical Summary ---
Author Organization [facility] ity Address [address] [place] [address] Care Team Providers Care Lead Pourer Name Role Phone Miguel Angel Hassan Primary Care Provider [phone] Social History Tobacco Use Types Packs/Day Years [...] - 2023-2 5 season) 2024 Influenza Vaccine (Season Ended) 2025 HIB Vaccines Aged Out No longer eligi [...] age to complete this topic Meningococcal B Vaccine Aged Out No l onger eligible based on patient's age to complete [...] age to complete this topic Care Teams Lead Pourer Relationship Specialty Start Date End Date Miguel Angel Hassan PA [address] [place] [address] PCP - General Internal Medicine 05/26/22
--- OUTSIDE RECORDS SUMMARY | 2025-01-01 15:15 | XMS_ITS | Clinical Summary ---
Author Organization [facility] Address [address] [place] [address] Care Team Providers Care Opto Mechanical Engineer Name Role Phone Miguel Angel Hassan Primary Care Provider [phone] Source Comments PLEASE NOTE, if this patient [...] Medications tamsulosin (FLOMAX) 0.4 mg 24 hr capsuleIndicatio ns:History of kidney stones Take 1 Capsule by mouth once daily 30 Capsule 1 Active ferrous sulfate 324 mg (65 mg iron) TbECIndications: Idiopathic hematuria, unspecified whether glomerular morphologic changes present,Iron deficiency anemia, unspecified iron deficiency anemia type Take 1 Tablet by mouth once daily with breakfast for 90 days 90 Tablet 5 02/24/20 25 Active Active Problems Problem Noted Date Diagnosed Date Idiopathic hematuria 06/15/2021 Overview (06/15/2021): Per [facility] Urology notes May 2021: monitor kidney stones and blood in urine at this time, if symptoms persist past age 35 would need full workup. Urine Cytology sent by [facility] May 2021 Encounters Date Type Department Care Team Description 11/23/2024 Interim Notes [facility] [address] [place] [address] Miguel Angel Hassan PA Iron deficiency anemia, unspecified iron deficiency anemia type (Primary Dx); Idiopathic hematuria, unspecified whether glomerular morphologic changes present; Chronic cystitis with hematuria 11/18/2024 1:20 PM EDT Office Visit [address] [address] Miguel Angel Hassan PA Idiopathic hematuria, unspecified whether glomerular morphologic changes present (Primary Dx); Iron deficiency anemia, unspecified iron deficiency anemia type from Last 3 Months Immunizations Immunization Administration Dates Next Due Flu, Preservative Free 06/20/2023,05/25/2022,07/2021 Hep A, Ped/adol, 2 Dose 09/01/2015,09/01/2015 Hep B,adult,adjuvanted (HEPLISAV) 06/20/2023 INFLUENZA, SEASONAL, INJECTA BLE, PRESERVATIVE FREE 09/01/2015,09/01/2015 MMR (MMR II/Priorix) 06/25/2021 Meningococcal B (Trumenba), Recombinant 09/01/19 16,09/01/2015 PFIZER COVID VACCINE, PURPLE CAP, 12+ 07/29/2021 ,06/12/2021 TDAP 09/01/2015,09/01/2015 Varicella (Varivax), Live Vaccine 06/25/2021 Family History Relation Name [...] 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 Not on file Not o [...] Health Maintenance Due Date Last Done Comments Anxiety Screening 1992 Imm-Meningococcal B (3 of 3 - Trumenba SCDM 3-Dose Series) 03/01/2016 09/01/2015, 09/01/2015 Imm-Hepatitis B (2 of 2 - Cp G 2-dose series) 07/18/2023 06/20/2023 [id number] ( season) 2024 021, 06/12/2021 Imm-Influenza (#1) [...] Procedure Name Priority Date/Time Associated Diagnosis Comments VITAMIN B12 & FOLATE Routine 11/19/2024 4:30 PM EDT Idiopathic hematuria, unspecified whether glomerular morphologic changes present IRON PANEL W TOTAL IRON BINDING CAPACITY Routine 11/19/2024 4:30 PM EDT Idiopathic hematuria, unspecified whether glomerular morphologic changes present BLOOD COUNT COMPLETE AUTOMATED Routine 11/19/2024 4:30 PM EDT Idiopathic hematuria, unspecified whether glomerular morphologic changes present REFERRAL SCANNED DOCUMENT 10/30/2024 3:00 AM EST HIV 1/2 AG & AB W/RFLX (4TH GEN) Routine 05/25/2022 9:24 AM EDT Routine adult health maintenance HEPATITIS C AB W/RFLX HCV RNA, QT, RT PCR Routine 05/25/2022 9:24 AM EDT Routine adult health maintenance from Last 3 Months or Most Recently Relevant to Health Maintenance Results * (ABNORMAL) IRON PANEL W TOTAL IRON BINDING CAPACITY (11/19/2024 4:30 PM EDT) IRON, TOTAL 20(L) 50 - 180 mcg/dL [facility] IRON BINDING CAPACITY 462(H) 250 - 425 mcg/dL (calc) [facility] % SATURATION 4(L) 20 - 48 % (calc) [facility] Blood Blood / Unknown 11/19/2024 4 :30 PM EDT 11/19/2024 4:30 PM EDT Miguel Angel [facility] - BLOOD DRAW Edited Result - Final [facility] [address] [address], [facility] [address] [place] [address] * VITAMIN B12 & FOLATE (11/19/2024 4:30 PM EDT) [facility] VITAMIN B12 451 200 - 1,100 pg/mL [facility] FOLATE, SERUM 14.4 5.5 ng/mL [facility] Comment: ? Reference Range ? Low: ? <3.4 ? Borderline: ?3.4-5.4 ? Normal: ?>5.4 Blood Blood / Unknown 11/19/2024 4 :30 PM EDT 11/19/2024 4:30 PM EDT Miguel Angel [facility] - BLOOD DRAW Edited Result - Final Performing Organization Address City/State/[facility] Co de Phone Number [facility] [address] [address], [facility] [address] [address] * (ABNORMAL) BLOOD COUNT COMPLETE AUTOMATED (11/19/2024 4:30 PM EDT) [facility] WHITE BLOOD CELL COUNT 3.9 3.8 - 10.8 Thousand/ uL [employer] RED BLOOD CELL COUNT 4.12(L) 4.20 - 5.80 Million/u L [employer] HEMOGLOBIN 8.0(L) 13.2 - 17.1 g/dL [employer] HEMATOCRIT 28.7(L) 38.5 - 50.0 % [employer] MCV 69.7(L) 80.0 - 100.0 fL [employer] MCH 19.4(L) 27.0 - 33.0 pg [employer] MCHC 27.9(L) 32.0 - 36.0 g/dL [employer] Comment: For adults, a slight decrease in the calculated MCHC value (in the range of 30 to 32 g/dL) is most likely not clinically significant; however, it should be interpreted with caution in correlation with other red cell parameters and the patient's clinical condition. RDW 18.3(H) 11.0 - 15.0 % [employer] PLATELET COUNT 284 140 - 400 Thousand/ uL [employer] MPV 11.8 7.5 - 12.5 fL [employer] Blood Blood / Unknown 11/19/2024 4 :30 PM EDT 11/19/2024 4:30 PM EDT us Miguel Angel [facility] - BLOOD DRAW Final Result [facility] [address] [place] [address], [employer] [address] [place] [phone] * REFERRAL SCANNED DOCUMENT (10/30/2024 3:00 AM EST) 10/30/2024 3:00 AM EST us Miguel Angel HERZOG SCAN REFERRAL Final Result * HEPATITIS C AB W/RFLX HCV RNA, QT, RT PCR (05/25/2022 9:24 AM EDT) HEPATITIS C ANTIBODY NON-REACT STEPHANIE NON-REACT STEPHANIE [employer] SIGNAL TO CUT-OFF 0.12 <1.00 [employer] Comment: HCV antibody was non-reactive. There is no laboratory evidence of HCV infection. In most cases, no further action is required. However, if recent HCV exposure is suspected, a test for HCV RNA (test code 52674) is suggested. For additional information please refer to http://education.Squawka/faq/PHS30r9 (This link is being provided for informational/ educational purposes only.) Blood Blood / Unknown 05/25/2022 9 :24 AM EDT 05/25/2022 9:25 AM EDT Miguel Angel [facility] - BLOOD DRAW Final Result [facility] [address] [address], [facility] [address],[place] [address] * HIV 1/2 AG & AB W/RFLX (4TH GEN) (05/25/2022 9:24 AM EDT) HIV AG/AB, 4TH GEN NON-REAC TIVE NON-REAC TIVE [facility] Comment: HIV-1 antigen and HIV-1/HIV-2 antibodies were [...] ?? For additional information please refer to http://education.[place]/faq/SST920 (This link is being provided for informational/ educational purposes only.) The performance of this assay has not been clinically validated in patients less than 2 years old. Blood Blood / Unknown 05/25/2022 9 :24 AM EDT 05/25/2022 9:25 AM EDT us Miguel Angel [facility] - BLOOD DRAW Final Result [employer] [address] [address], [employer] [facility] [address],[facility] [place] [address] from Last 3 Months or Most Recently Relevant to Health Maintenance Insurance HNE ([facility]) Member Subscriber Plan / Payer (Ef fective 2024-Present) Name:Joseph English Relation to Subscriber:Self Name:Joseph English Payer ID:[id number] Group ID:Not on file Type:Indemniblaise Address: [address] [place] [id number] Care Teams Opto Mechanical Engineer Relationship Specialty Start Date End Date Miguel Angel Hassan PA [address] [place] [address] PCP - General Internal Medicine 10/07/19
== END 2025-01-01 15:49 | disposition home or self-care (01) ==
LOC: HO.HUSH 13:57
PROVIDERS: PCP Physician Assistant; Visit Provider Urology
DX: Z13.9 Encounter for screening, unspecified (principal)

== ENCOUNTER 2025-02-18 08:48 | Outpatient (AMB) | payer OTHER, SELFPAY ==
--- NOTE | 2025-02-18 09:04 | MHC.OFFVIS ---
Intake Visit Reasons: cysto Intake Note: Patient is present for cystoscopy Urology Medication:NONE Antibiotic Allergy:NONE Blood Thinner:NONE Salon Shampoo Assistant Required: No Allergies No Known Allergies Allergy (Verified 02/18/25 09:06) HPI Comments Details: Blanca is a pleasant male. He is a patient of . He is seen for the following urologic conditions - recurrent UTI - microscopic hematuria - prostatitis Here for cystoscopy Bladder normal UA evidence recurrent prostatitis Repeat doses with 1 month Levaquin and then suppression trimethoprim Prostatitis Managed with combination therapy Recurrent UTI with blood in the urine Reason presentation to [facility] emergency room UTI bladder wall thickening Initially given Bactrim - nitrite negative Urine culture has come back with group B strep. Antibiotics changed to Augmentin. 04/20 CT scan performed negative Had 14 days of Levaquin [facility] Medical History (Updated 10/30/24 @ 11:48 by Dragan Agrawal MD) Microscopic hematuria Recurrent nephrolithiasis Review of Systems Const Denies chills and Denies fever(s) Card Reports no additional complaints and Denies syncope Resp Denies cough GI Denies abdominal pain and Denies heartburn Reports as per HPI and Denies change in libido Neuro Denies syncope Psych Denies change in libido Endo Denies change in libido Physical Exam Const General: cooperative, healthy appearing, comfortable and no acute distress Orientation/consciousness: patient oriented x3 HEENT Face and sinus: Yes normal facial exam Mouth: moist mucous membranes Neck Neck: Yes normal visual inspection, Yes full ROM and Yes trachea midline Chest Chest palpation & inspection: normal inspection of the chest Resp Effort & Inspection: normal respiratory effort, able to speak in complete sentences and no respiratory distress GI Inspection: Yes normal to inspection Back/Spine/Pelvis Cervical Spine: normal cervical lordosis Thoracic/Lumbar Spine: thoracic and lumbar spine normal to inspection Skin General skin exam: no rashes or lesions noted Neuro General: patient oriented x3, gait normal, tone normal and moves all extremities Extrem General: Yes normal to inspection and Yes capillary refill normal Office Procedures Cystoscopy Consent Discussed risk and benefit or proposed procedure with the patient. Information consent for procedure given to the patient. Discussed technical aspects, risks, benefits and alternatives in full. Addressed all of the patient's questions and concerns regarding the procedure. The patient demonstrated knowledge and understanding. They wish to proceed with this procedure. Preparation The patient was prepped in the usual manner. A bearing machine operator was present and in the room. Genitalia was prepped with betadine solution in a sterile manner. Lidocaine Jelly 2% was placed into the urethra and 16Fr flexible Olympus cystoscope was inserted into the meatus after adequate lubrication. Procedure Cystoscopy performed using a disposable Urovue digital 16 Latvian cystoscope. Meatus circumcised Urethra anterior and posterior urethra normal Prostatic Urethra unremarkable Bladder examination with retroflexion of cystoscope Bladder Orifices normal shape and position Bladder Capacity Normal Trabeculations Grade 0 Cellule Formation None Diverticulum Formation None Mucosal Erythema None Bladder Tumor None [id number] DISPOSABLE SCOPE URO-G FLEXIBLE SCOPE Procedure code (CPT) selection complete Office Meds lidocaine HCl 2 % mucosal jelly in applicator Performing Provider: Dragan Agrawal MD Performing Location: [facility] Administered by: Derik Burr LPN on 02/18/25 09:20 Dose Route Admin Location Dispensed Lot Number Expiration Date [facility] [employer] Sales Representative 10 mL intra-urethral 10 mL nitrofurantoin monohydrate/macrocrystals 100 mg capsule Performing Provider: Dragan Agrawal MD Performing Location: [facility] Administered by: Derik Burr LPN on 02/18/25 09:20 Dose Route Admin Location Dispensed Lot Number Expiration Date [facility] [employer] Sales Representative 100 mg PO 1 cap Assessment & Plan Assessment & Plan (1) Microscopic hematuria: Code(s): R31.29 - Other microscopic hematuria Category: Medical (2) Prostatitis: Code(s): N41.9 - Inflammatory disease of prostate, unspecified Category: Medical Plan Recurrent prostatitis, complicated UTI Re-dose 1 month Levaquin Six-month suppression Orders: Orders AMB Cystoscopy Today N39.0 - Urinary tract infection, site not specified, R31.29 - Other microscopic hematuria Urine Culture Today R31.29 - Other microscopic hematuria AMB Urinalysis Automated Today Z13.9 - Encounter for screening, unspecified Medications: New methenamine hippurate Start medication once Levaquin prescription completed 1 g PO DAILY 90 tabs 1RF 90 days N39.0 - Urinary tract infection, site not specified ascorbic acid (vitamin C) Start medication once Levaquin prescription completed 1,000 mg PO DAILY 90 tabs 1RF 90 days N39.0 - Urinary tract infection, site not specified trimethoprim Start medication once Levaquin prescription completed 200 mg (2 x 100 mg) PO BID 360 tabs 1RF 90 days N39.0 - Urinary tract infection, site not specified Refilled levofloxacin 500 mg PO DAILY 28 tabs 0RF 28 days N41.9 - Inflammatory disease of prostate, unspecified Patient Instructions: This note is constructed using voice recognition software. While every effort has been made to ensure accuracy marine erector errors may have been included. Imaging studies, laboratory and physical exam results were discussed and reviewed in detail. No major barriers to patient understanding were identified. An opportunity to ask questions regarding the treatment plan was provided. All questions were answered. The patient expressed understanding and agreement with the above treatment plan. The patient is aware they should contact our office by phone for worsening of their current condition or the appearance of new urologic symptoms. Compliance is encouraged with any medications and followup testing that is ordered. It is a privilege to participate in the urologic care of your patient. If you have any questions or concerns regarding treatment for the above conditions, or other urologic issues, please do not hesitate to contact me. The office telephone contact is [phone]. Sincerely, Dr Dragan Agrawal MD, [facility] Urology Compassionate Specialist Care for the Genitourinary System Coding Level of Care Code Est Pt Level 4 (80885) Diagnoses Microscopic hematuria R31.29 Prostatitis N41.9 CPT Codes Cystoscopy - CPT: 92294-[id number] ([id number])
--- OUTSIDE RECORDS SUMMARY | 2025-02-18 09:13 | XMS_ITS | Clinical Summary ---
Author Organization [facility] Address [address] [place] [address] Care Team Providers Care Cassandra Consultant Name Role Phone Miguel Angel Hassan Primary Care Provider [phone] Source Comments PLEASE NOTE, if this patient [...] Date Idiopathic hematuria 06/15/2021 Overview (06/15/2021): Per [facility] Urology notes May 2021: monitor kidney stones and blood in urine at this time, if symptoms persist past age 37 would need full workup. 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 on file Not o n file Not on file Last Filed Vital Signs Vital Sign Reading Time Taken Comments Blood Pressure 124/70 07/09/2024 10:58 AM EST Pulse 96 07/09/2024 10:58 AM EST Temperature 36.9 C (98.4 F) 05/08/2024 1:46 PM EDT Respiratory Rate 19 07/09/2024 10:58 AM EST [...] - Cp G 2-dose series) 07/18/2023 06/20/2023 [id number] ( season) 2024 021, 06/12/2021 Annual Wellness (Adult): Ind icated (All Coverage) 06/20/2024 06/20/2023, 11/18/2021, 10/29/2019 Alcohol and Drug Screen 08/28/2024 06/20/20 23, 11/18/2021, 11/18/2021, Additional history exists Depression Annual Screen 08/28/2024 06/20/2023 Imm-Influenza (Season Ended) 2025, 05/25/2022, 07/09/2021, Additional history exists Hypertension Screening (#1) 07/09/2025 Tobacco Screening 07/09/2025 [...] hematuria, unspecified whether glomerular morphologic changes present HIV 1/2 AG & AB W/RFLX (4TH [...] IRON, TOTAL 20(L) 50 - 180 mcg/dL [facility] IRON BINDING CAPACITY 462(H) 250 - 425 mcg/dL (calc) [facility] % SATURATION 4(L) 20 - 48 % (calc) [facility] Blood Blood / Unknown 11/19/2024 4 :30 PM EDT 11/19/2024 4:30 PM EDT Miguel Angel [facility] - BLOOD DRAW Edited Result - Final [employer] [address] [address], [facility] [address] [address] * VITAMIN B12 & FOLATE (11/19/2024 4:30 PM EDT) Pathologist [facility] VITAMIN B12 451 200 - 1,100 pg/mL [facility] FOLATE, SERUM 14.4 5.5 ng/mL [facility] Comment: Reference Range Low: <3.4 Borderline: 3.4-5.4 Normal: >5.4 Blood Blood / Unknown 11/19/2024 4 :30 PM EDT 11/19/2024 4:30 PM EDT Miguel Angel [facility] - BLOOD DRAW Edited Result - Final [employer] [address] [place] [address], [facility] [address] [place] [phone] * (ABNORMAL) CBC COMPLT, AUTO (HGB, HCT, RBC, WBC, PLT) [[id number]] (11/19/2024 4:30 PM EDT) Pathologist [facility] WHITE BLOOD CELL COUNT 3.9 3.8 - 10.8 Thousand/ uL [facility] RED BLOOD CELL COUNT 4.12(L) 4.20 - 5.80 Million/u L [facility] HEMOGLOBIN 8.0(L) 13.2 - 17.1 g/dL [facility] HEMATOCRIT 28.7(L) 38.5 - 50.0 % [facility] MCV 69.7(L) 80.0 - 100.0 fL [facility] MCH 19.4(L) 27.0 - 33.0 pg [facility] MCHC 27.9(L) 32.0 - 36.0 g/dL [facility] Comment: For adults, a slight decrease in the calculated MCHC value (in the range of 30 to 32 g/dL) is most likely not clinically significant; however, it should be interpreted with caution in correlation with other red cell parameters and the patient's clinical condition. RDW 18.3(H) 11.0 - 15.0 % [facility] PLATELET COUNT 284 140 - 400 Thousand/ uL [facility] MPV 11.8 7.5 - 12.5 fL [facility] Blood Blood / Unknown 11/19/2024 4 :30 PM EDT 11/19/2024 4:30 PM EDT us Miguel Angel [facility] - BLOOD DRAW Final Result Performing Organization Address [facility]/ZIP Co de Phone Number [facility] [address] [address], [facility] [address] [address] * HEPATITIS C AB W/RFLX HCV RNA, QT, RT PCR (05/25/2022 9:24 AM EDT) HEPATITIS C ANTIBODY NON-REACT STEPHANIE NON-REACT STEPHANIE [facility] SIGNAL TO CUT-OFF 0.12 <1.00 [facility] Comment: HCV antibody was non-reactive. There is no laboratory evidence of HCV infection. In most cases, no further action is required. However, if recent HCV exposure is suspected, a test for HCV RNA (test code 05634) is suggested. For additional information please refer to http://education.[employer]/faq/XZN57t2 (This link is being provided for informational/ educational purposes only.) Blood Blood / Unknown 05/25/2022 9 :24 AM EDT 05/25/2022 9:25 AM EDT us Miguel Angel [facility] - BLOOD DRAW Final Result Performing Organization Address [facility] Co de Phone Number [facility] [address] [address], [facility] [address],[facility] [place] [address] * HIV 1/2 AG & AB W/RFLX (4TH GEN) (05/25/2022 9:24 AM EDT) HIV AG/AB, 4TH GEN NON-REAC TIVE NON-REAC TIVE [facility] Comment: HIV-1 antigen and HIV-1/HIV-2 antibodies were not detected. There is no laboratory evidence of HIV infection. PLEASE NOTE: This information has been disclosed to you from records whose confidentiality may be protected by state law. If your state requires such protection, then the state law prohibits you from making any further disclosure of the information without the specific written consent of the person to whom it pertains, or as otherwise permitted by law. A general authorization for the release of medical or other information is NOT sufficient for this purpose. For additional information please refer to http://education.Beanup.LSEO/faq/BPO463 (This link is being provided for informational/ educational purposes only.) The performance of this assay has not been clinically validated in patients less than 2 years old. Blood Blood / Unknown 05/25/2022 9 :24 AM EDT 05/25/2022 9:25 AM EDT Miguel Angel [facility] - BLOOD DRAW Final Result [facility] [address] [address], [facility] [address] [address] from Last 3 Months or Most Recently Relevant to Health Maintenance Insurance HNE ([facility]) Member Subscriber Plan / Payer (Ef fective 2024-Present) Name:Joseph English Relation to Subscriber:Self Name:Joseph English Payer ID:[id number] Group ID:Not on file Type:Indemnity Address: [address] [place] [address] Care Teams Cassandra Consultant Relationship Specialty Start Date End Date Miguel Angel Hassan PA [address] [place] [address] PCP - General Internal Medicine 10/07/19
== END 2025-02-18 09:43 | disposition home or self-care (01) ==
LOC: HO.HUSH 08:49
PROVIDERS: PCP Physician Assistant; Visit Provider Urology
DX: R31.29 Other microscopic hematuria (principal); N41.9 Inflammatory disease of prostate, unspecified; N39.0 Urinary tract infection, site not specified; Z13.9 Encounter for screening, unspecified
CPT/HCPCS: 52000; 99214

== ENCOUNTER 2025-02-18 08:48 | Outpatient (REF) | payer OTHER, SELFPAY | END 2025-02-18 08:49 | disposition home or self-care (01) | LOC: HO.LAB 08:48 | PROVIDERS: PCP Physician Assistant; Visit Provider Urology | DX: R31.29 Other microscopic hematuria (principal); N41.9 Inflammatory disease of prostate, unspecified | CPT/HCPCS: 52000; 81003; 87086 ==

== ENCOUNTER 2025-05-20 09:00 | Outpatient (AMB) | payer OTHER, SELFPAY ==
--- NOTE | 2025-05-20 09:01 | A.OFFVIS_ITS ---
Intake Visit Reasons: 3m f/u Intake Note: patient presents today for: telehealth 3mo follow up urology medications: vit c, methenamine hippurate blood thinners: none Jinrikisha Driver Required: No Accompanied by: Self / Same As Patient Allergies No Known Allergies Allergy (Verified 05/20/25 09:01) HPI Comments Details: Blanca is a pleasant male. He is a patient of . He is seen for the following urologic conditions - recurrent UTI - microscopic hematuria - prostatitis Telemedicine Evaluation 15 min Consultation [employer] Beti Video Still with blood in the urine Prostatitis pain has disappeared No pain with ejaculation or urination Reduce medication to trimethoprim 100 mg daily and stop ascorbic acid and methenamine Six-month follow-up office UA Prostatitis Managed with combination therapy Recurrent UTI with blood in the urine Reason presentation to [facility] emergency room UTI bladder wall thickening Initially given Bactrim - nitrite negative Urine culture has come back with group B strep. Antibiotics changed to Augmentin. 04/20 CT scan performed negative Had 14 days of Levaquin Prior cystoscopy - Bladder normal [facility] Medical History (Updated 10/30/24 @ 11:48 by Dragan Agrawal MD) Microscopic hematuria Recurrent nephrolithiasis Review of Systems Const All systems reviewed & are unremarkable except as noted in HPI and below Reports no additional complaints Resp Reports no additional complaints GI Reports no additional complaints Reports as per HPI Musc Reports no additional complaints Physical Exam Telemedicine evaluation Appropriate responses Regular breathing rate and rhythm HEENT Head: Yes normal to inspection Ears: hearing grossly normal bilaterally Eyes General: appearance normal, both eyes and all related structures Neck Neck: Yes normal visual inspection Chest Chest palpation & inspection: normal inspection of the chest Resp Effort & Inspection: normal respiratory effort and able to speak in complete sentences Telehealth Telehealth Telehealth Platform: NEXGRID Location of provider rendering services: practice address Location of patient: address on file Patient Identification confirmed using: Name, : Yes Telehealth method: video Patient verbally consented to treatment: Yes Patient verbally consented to billing insurance company: Yes Patient informed of any privacy concerns related to visit: Yes Minutes spent on Phone/Video with Pt.: 15 Assessment & Plan Assessment & Plan (1) Microscopic hematuria: Code(s): R31.29 - Other microscopic hematuria Category: Medical (2) Complicated urinary tract infection: Code(s): N39.0 - Urinary tract infection, site not specified Category: Medical Plan Reduced to trimethoprim 100 mg p.o. daily Medications: Changed From trimethoprim Start medication once Levaquin prescription completed 200 mg (2 x 100 mg) PO BID 90 days 360 tabs 1RF N39.0 - Urinary tract infection, site not specified To trimethoprim 100 mg PO ONCE 90 tabs 1RF 90 days N39.0 - Urinary tract infection, site not specified Patient Instructions: This note is constructed using voice recognition software. While every effort has been made to ensure accuracy print binding worker errors may have been included. Imaging studies, laboratory and physical exam results were discussed and reviewed in detail. No major barriers to patient understanding were identified. An opportunity to ask questions regarding the treatment plan was provided. All questions were answered. The patient expressed understanding and agreement with the above treatment plan. The patient is aware they should contact our office by phone for worsening of their current condition or the appearance of new urologic symptoms. Compliance is encouraged with any medications and followup testing that is ordered. It is a privilege to participate in the urologic care of your patient. If you have any questions or concerns regarding treatment for the above conditions, or other urologic issues, please do not hesitate to contact me. The office telephone contact is [phone]. Sincerely, Dr Dragan Agrawal MD, [facility] - Urology Compassionate Specialist Care for the Genitourinary System Coding Level of Care Code Tele Est Pt Level 3 (72309) Complex EM visit Add On G2211 Diagnoses Microscopic hematuria R31.29 Complicated urinary tract infection N39.0
--- OUTSIDE RECORDS SUMMARY | 2025-05-20 10:18 | XMS_ITS | Clinical Summary ---
Author Organization [facility] Address [address] [place] [address] Care Team Providers Care Rigging Helper Name Role Phone Miguel Angel Hassan Primary Care Provider [phone] Source Comments PLEASE NOTE, if this patient [...] breakfast for 90 days 90 Tablet 5 Active Active Problems Problem Noted Date Diagnosed Date Idiopathic hematuria 06/15/2021 Overview (06/15/2021): Per [facility] U[facility] notes May 2021: monitor kidney stones and blood in urine at this time, if symptoms persist past age 35 would need full workup. 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 Not o [...] [employer] SCDM 3-Dose Series) 03/01/2016 09/01/2015, 09/01/2015 Imm-HPV (1 - 3-dose SCDM series) 02/22/2019 Imm-Hepatitis B (2 of 2 - Cp G 2-dose series) 07/18/2023 06/20/2023 Annual Wellness (Adult): Ind icated (All Coverage) 06/20/2024 06/20/2023, 11/18/2021, 10/29/2019 Alcohol and Drug Screen 08/28/2024 06/20/20 23, 11/18/2021, 11/18/2021, Additional history exists Depression Annual Screen 08/28/2024 06/20/2023 [id number] ( - season) 2025 021, 06/12/2021 Imm-Influenza (#1) 2025 06/20/2023, 0 05/25/2022, 07/09/2021, Additional history exists Hypertension Screening (#1) 07/09/2025 Tobacco Screening 07/09/2025 07/09/2024, , 11/18/2021 Imm-DTaP/Tdap/Td (3 - Td or Tdap) 09/01/2025 016, 09/01/2015 HIV Screening Completed 05/25/2022 Hepatitis C Screening Completed 05/25/2022 Procedures Procedure Name Priority Date/Time Associated Diagnosis Comments REFERRAL SCANNED DOCUMENT 02/18/2025 3:00 AM EDT REFERRAL SCANNED DOCUMENT 02/18/2025 3:00 AM EDT REFERRAL SCANNED DOCUMENT 02/18/2025 3:00 AM EDT LAB SCANNED DOCUMENT 02/18/2025 3:00 AM EDT HIV 1/2 AG & AB W/RFLX (4TH GEN) Routine 05/25/2022 9:24 AM EDT Routine adult health maintenance HEPATITIS C AB W/RFLX HCV RNA, QT, RT PCR Routine 05/25/2022 9:24 AM EDT Routine adult health maintenance from Last 3 Months or Most Recently Relevant to Health Maintenance Results * REFERRAL SCANNED DOCUMENT (02/18/2025 3:00 AM EDT) Only the most recent of3 resultswithin the time period is included. 02/18/2025 3:00 AM EDT us Miguel Angel HERZOG SCAN REFERRAL Final Result * LAB SCANNED DOCUMENT (02/18/2025 3:00 AM EDT) 02/18/2025 3:00 AM EDT us Miguel Angel HERZOG SCAN LAB Final Result * HEPATITIS C AB W/RFLX HCV RNA, QT, RT PCR (05/25/2022 9:24 AM EDT) HEPATITIS C ANTIBODY NON-REACT STEPHANIE NON-REACT STEPHANIE [employer] SIGNAL TO CUT-OFF 0.12 <1.00 [employer] [facility] Comment: HCV antibody was non-reactive. There is no laboratory evidence of HCV infection. In most cases, no further action is required. However, if recent HCV exposure is suspected, a test for HCV RNA (test code 63942) is suggested. For additional information please refer to http://education.Wejo.Kareo/faq/GSF02j9 (This link is being provided for informational/ educational purposes only.) Blood Blood / Unknown 05/25/2022 9 :24 AM EDT 05/25/2022 9:25 AM EDT us Miguel Angel HERZOG LAB - BLOOD DRAW Final Result [employer] [facility] [address] [id number], [email or web address] [facility] [address],[facility] [place] [address] * HIV 1/2 AG & AB W/RFLX (4TH GEN) (05/25/2022 9:24 AM EDT) HIV AG/AB, 4TH GEN NON-REAC TIVE NON-REAC TIVE [employer] [facility] Comment: HIV-1 antigen and HIV-1/HIV-2 antibodies were [...] purpose. For additional information please refer to http://education.MulliganPlus/faq/EJE452 (This link is being provided for informational/ educational purposes only.) The performance of this assay has not been clinically validated in patients less than 2 years old. Blood Blood / Unknown 05/25/2022 9 :24 AM EDT 05/25/2022 9:25 AM EDT Miguel Angel HERZOG LAB - BLOOD DRAW Final Result Performing Organization Address City/[facility]/ZIP Co de Phone Number [employer] [facility] [address] [address], [email or web address] [facility] [address],[facility] [place] [address] from Last 3 Months or Most Recently Relevant to Health Maintenance Insurance [employer] ([employer]) Member Subscriber Plan / Payer (Ef fective 2024-Present) Name:Joseph English Relation to Subscriber:Self Name:Joseph English Payer ID:[id number] Group ID:Not on file Type:Indemnity Address: [address] [place] [id number] Care Teams Rigging Helper Relationship Specialty Start Date End Date Miguel Angel Hassan PA [address] [place] [address] PCP - General Internal Medicine 10/07/19
== END 2025-05-20 09:23 | disposition home or self-care (01) ==
LOC: HO.HUSH 09:00
PROVIDERS: PCP Physician Assistant; Visit Provider Urology
DX: R31.29 Other microscopic hematuria (principal); N39.0 Urinary tract infection, site not specified
CPT/HCPCS: 99213; G2211

== ENCOUNTER 2025-07-30 08:08 | Outpatient (AMB) | payer OTHER, SELFPAY ==
--- NOTE | 2025-07-30 08:09 | A.OFFVIS_ITS ---
Intake Visit Reasons: discuss new plan/ABX treatment(set) Intake Note: Reason for Visit: Discuss new plan of care for prostatitis Urology Meds: Vitamin C, Methenamine, Trimethoprim Blood Thinners: None Imaging: No Recent Imaging Labs: None Patient reports he is no longer on the following medications Vitamin C, Methenamine, Trimethoprim wants to discuss new plan of treatment Gardening Instructor Required: No Accompanied by: Self / Same As Patient Allergies No Known Allergies Allergy (Verified 07/30/25 08:10) HPI Comments Details: Blanca is a pleasant male. He is a patient of . He is seen for the following urologic conditions - recurrent UTI - microscopic hematuria - prostatitis Telemedicine Evaluation 15 min Consultation [employer] Bet[employer] Video Three-month follow-up Had required management with daily low-dose trimethoprim and methenamine previously Persistent blood in the urine at urination Discussed office cystoscopy repeat and urine culture We will have him come in and drop off urine for Microgen Prostatitis Managed with combination therapy Recurrent UTI with blood in the urine Reason presentation to [facility] emergency room UTI bladder wall thickening Initially given Bactrim - nitrite negative Urine culture has come back with group B strep. Antibiotics changed to Augmentin. 04/20 CT scan performed negative Had 14 days of Levaquin Prior cystoscopy - Bladder normal [facility] Medical History Microscopic hematuria Recurrent nephrolithiasis Review of Systems Const All systems reviewed & are unremarkable except as noted in HPI and below Reports no additional complaints Resp Reports no additional complaints GI Reports no additional complaints Reports as per HPI Musc Reports no additional complaints Physical Exam Telemedicine evaluation Appropriate responses Regular breathing rate and rhythm HEENT Head: Yes normal to inspection Ears: hearing grossly normal bilaterally Eyes General: appearance normal, both eyes and all related structures Neck Neck: Yes normal visual inspection Chest Chest palpation & inspection: normal inspection of the chest Resp Effort & Inspection: normal respiratory effort and able to speak in complete sentences Telehealth Telehealth Telehealth Platform: [employer]Doc Location of provider rendering services: practice address Location of patient: address on file Patient Identification confirmed using: Name, : Yes Telehealth method: video Patient verbally consented to treatment: Yes Patient verbally consented to billing insurance company: Yes Patient informed of any privacy concerns related to visit: Yes Minutes spent on Phone/Video with Pt.: 15 Assessment & Plan Assessment & Plan (1) Complicated urinary tract infection: Code(s): N39.0 - Urinary tract infection, site not specified Category: Medical Plan Plan urine Microgen Office cystoscopy Patient Instructions: This note is constructed using voice recognition software. While every effort has been made to ensure accuracy color specialist errors may have been included. Imaging studies, laboratory and physical exam results were discussed and reviewed in detail. No major barriers to patient understanding were identified. An opportunity to ask questions regarding the treatment plan was provided. All questions were answered. The patient expressed understanding and agreement with the above treatment plan. The patient is aware they should contact our office by phone for worsening of their current condition or the appearance of new urologic symptoms. Compliance is encouraged with any medications and followup testing that is ordered. It is a privilege to participate in the urologic care of your patient. If you have any questions or concerns regarding treatment for the above conditions, or other urologic issues, please do not hesitate to contact me. The office telephone contact is [phone]. Sincerely, Dr Dragan Agrawal MD, [facility] - Urology Compassionate Specialist Care for the Genitourinary System Coding Level of Care Code Tele Est Pt Level 3 (81800) Complex visit Add On G2211 Diagnoses Complicated urinary tract infection N39.0
== END 2025-07-30 10:20 | disposition home or self-care (01) ==
LOC: HO.HUSH 08:09
PROVIDERS: PCP Physician Assistant; Visit Provider Urology
DX: N39.0 Urinary tract infection, site not specified (principal)
CPT/HCPCS: 99213; G2211